=== PATIENT | male | born 1995 | race Caucasian/White ===

== ENCOUNTER 2016-06-29 19:52 | Emergency (ER) | payer SELFPAY ==
[~2016-06-29 19:52] MED LIST: GARDINJ IM
[2016-06-29 19:53] VITALS: BP 163/68; PULSE 64; RESP 18; TEMP 98.2; O2SAT 97
[2016-06-29] MEDS ORDERED: AMOX500C PO (20:48)
--- NOTE | 2016-06-29 20:52 | PD ---
HPI Chief Complaint: Laceration/Skin Injury Time Seen by Provider: 20:49 Travel History International Travel<30 days: No Contact w/Intl Traveler<30days: No Traveled to known affect area: No History of Present Illness HPI 20-year-old white male presents to emergency department with a laceration to his lower lip which occurred prior to arrival. He states that he was doing a trick with his scooter and accidentally bit his lip. He denies any dental injury. No numbness, tingling or weakness. Pain is minimal. Up-to-date with immunizations. [facility] Past Medical History Medical History: Denies Significant Hx Tetanus Vaccination: Unknown Past Surgical History Surgical History: No Previous Surgery Social History Alcohol Use: No Tobacco Use: No Substance Use: No Allergies-Medications (Allergen,Severity, Reaction): Coded Allergies: No Known Allergies (Unverified , 06/29/16) Reported Meds & Prescriptions Reported Meds & Active Scripts Active Amoxicillin 500 Mg Cap 500 Mg PO TID Review of Systems Except as stated in HPI: all other systems reviewed are Neg Physical Exam Narrative GENERAL: Well-developed, well-nourished in no acute distress. Nontoxic appearing. HEAD: Normocephalic, patient has a 1 cm laceration through the dry vermilion of the lower lip centrally. EYES: Pupils equal round and reactive. Extraocular motions intact. No scleral icterus. No injection or drainage. ENT: TMs clear without erythema. The external auditory canals clear. Nose: clear . Posterior pharynx is pink and moist. No tonsillar edema or exudate. Uvula midline. Airway patent. NECK: Trachea midline.Supple, nontender, moves head freely. No central bony tenderness or spasm. CARDIOVASCULAR: Regular rate and rhythm without murmurs, gallops, or rubs. RESPIRATORY: Clear to auscultation. Breath sounds equal bilaterally. No wheezes , rales, or rhonchi. GASTROINTESTINAL: Abdomen soft, non-tender, nondistended. No hepato-splenomegaly , or palpable masses. No guarding. EXTREMITIES: No clubbing, cyanosis, or edema. No joint tenderness, effusion, or edema noted. BACK: Nontender without deformity or crepitance. No flank tenderness. Data Data Last Documented VS Vital Signs Date Time Temp Pulse Resp B/P Pulse Ox O2 Delivery O2 Flow Rate FiO2 06/29/16 19:53 98.2 64 18 163/68 97 Room Air Orders Lidocaine 1% Inj (50 Ml) (Xylocaine 1% I (06/29/16 21:00) Amoxicillin (Trimox) (06/29/16 21:00) MDM Medical Decision Making Medical Screen Exam Complete: Yes Emergency Medical Condition: Yes Medical Record Reviewed: Yes Differential Diagnosis MDM: High Differential diagnoses: Fracture, sprain, strain, dislocation, contusion, neurovascular injury Narrative Course Patient's lip was closed with sutures. Patient's given amoxicillin 500 mg by mouth. This is lip laceration Procedures Procedure Narrative LACERATION LOCATION: Lower lip dry vermilion LENGTH: 1 cm NUMBER OF STITCHES/MIKO: 2 REPAIR: The area of the laceration was prepped with Betadine and sterilely draped. The laceration was infiltrated with 1% lidocaine]. The wound was copiously irrigated and explored without evidence of foreign body, tendon injury or neurovascular injury. The wound was closed using 5-0 Vicryl. This was a simple single layer repair. Patient tolerated the procedure well. Diagnosis Primary Impression: Laceration of lower lip Qualified Code: S01.511A - Laceration of lower lip, initial encounter Patient Instructions: General Instructions Additional Instructions: Rest. Elevation. Tylenol and Advil for pain. Daily wound care with soap, water, Neosporin. Sutures out in 7 days. Return to the ER if any problems. Med/Other Pt SpecificInfo: Prescription(s) given, Wound Care Scripts Amoxicillin 500 Mg [id number] Mg PO TID #15 CAP Prov:Angel Lloyd MD 06/29/16 Disposition: 01 DISCHARGE HOME Condition: Stable John Sanchez Jun 29, 2016 20:52
[2016-06-29] MEDS ORDERED: AMOXICILLIN (TRIHYDRATE) 500 MG CAP PO ONE (21:00)
[2016-06-29] MEDS ORDERED: LIDOCAINE HCL 1% 50 ML VIAL INFIL ONE (21:00)
== END 2016-06-29 21:56 | disposition home or self-care (01) ==
LOC: NEPB 19:52
DX: S01.511A Laceration without foreign body of lip, initial encounter (principal); X58.XXXA Exposure to other specified factors, initial encounter; Y93.79 Activity, other specified sports and athletics
CPT/HCPCS: 12011